=== PATIENT | female | born 1970 | race Caucasian/White ===

== ENCOUNTER → 2017-04-15 | Outpatient (CLI) | payer OTHER | LOC: FIMAGING 12:37 | PROVIDERS: ATTEND Internal Medicine | DX: E04.1 Nontoxic single thyroid nodule (principal) ==

== ENCOUNTER → 2017-06-14 | Outpatient (CLI) | payer OTHER | LOC: FIMAGING 09:15 | PROVIDERS: ATTEND Allergy & Immunology Allergy | DX: J32.9 Chronic sinusitis, unspecified (principal) ==

== ENCOUNTER → 2017-09-09 | Outpatient (CLI) | payer OTHER | LOC: FIMAGING 09:23 | PROVIDERS: ATTEND Internal Medicine | DX: Z12.31 Encounter for screening mammogram for malignant neoplasm of breast (principal) | CPT/HCPCS: G0202 ==

== ENCOUNTER → 2018-04-07 | Outpatient (CLI) | payer OTHER | LOC: FIMAGING 16:55 | PROVIDERS: ATTEND Internal Medicine | DX: Z12.73 Encounter for screening for malignant neoplasm of ovary (principal); D25.1 Intramural leiomyoma of uterus; Z97.5 Presence of (intrauterine) contraceptive device ==

== ENCOUNTER → 2018-10-17 | Outpatient (CLI) | payer OTHER | LOC: FIMAGING 14:41 | PROVIDERS: ATTEND Internal Medicine | DX: Z12.31 Encounter for screening mammogram for malignant neoplasm of breast (principal) ==

== ENCOUNTER 2018-11-08 18:26 | Emergency (ER) | payer OTHER ==
[2018-11-08 19:02] LABS: PLATELET COUNT 290 10^3/uL (150-400)
--- NOTE | 2018-11-08 19:23 | EDPHY ---
H & P Stated Complaint: syncopal Time Seen by Provider: 11/08/18 18:40 HPI/ROS: CHIEF COMPLAINT: Near syncope HISTORY OF PRESENT ILLNESS: 48-year-old female presents with near syncope. At 2:30 p.m. She took an edible CBD preparation for ongoing neck pain. She was sitting on the couch at 6:00 p.m., when she developed an out of body experience and felt that she was disconnected from her body. She then became quite anxious and developed tingling and all of her extremities. She felt like she was going in and out of consciousness. She now is starting to feel somewhat better. She is very concerned that she is having a stroke. She did not faint or fall. No prior similar symptoms. REVIEW OF SYSTEMS: complete 10 point ROS reviewed and is negative except for the noted elements in the HPI - Personal History LMP (Females 10-55): Now Current Tetanus/Diphtheria Vaccine: Unsure - Medical/Surgical History Hx Asthma: No Hx Chronic Respiratory Disease: No Hx Diabetes: No Hx Cardiac Disease: No Hx Renal Disease: No Hx Cirrhosis: No Hx Alcoholism: No Hx HIV/AIDS: No Hx Splenectomy or Spleen Trauma: No Other PMH: PMH- HYPOTHYROID - Social History Smoking Status: Never smoked Alcohol Use: Sober Drug Use: None - Physical Exam Exam: General Appearance: Alert, pleasant Eyes: Pupils equal and round, no conjunctival pallor or injection ENT, Mouth: Mucous membranes moist Neck: Normal inspection Respiratory: Lungs are clear to auscultation Cardiovascular: Regular rate and rhythm Gastrointestinal: Abdomen is soft and nontender Neurological: Alert, oriented x3, cranial nerves II through XII intact, motor 5 /5, sensory intact to light touch, normal gait Skin: Warm and dry Extremities: Nontender, no pedal edema Psychiatric: Anxious Constitutional: Initial Vital Signs Temperature (C) 36.4 C 11/08/18 18:37 Heart Rate 120 H 11/08/18 18:37 Respiratory Rate 22 H 11/08/18 18:37 Blood Pressure 130/87 H 11/08/18 18:37 O2 Sat (%) 97 11/08/18 18:37 O2 Delivery Mode Room Air Allergies/Adverse Reactions: broccoli Allergy (Verified 11/08/18 18:40) cauliflower Allergy (Verified 11/08/18 18:40) Lactobacillus acidophilus [From Rosaura] Allergy (Verified 11/21/15 11:50) pectin [From Rosaura] Allergy (Verified 10/05/15 11:50) Home Medications: Medication Instructions Recorded Acetaminophen with Codeine 1 each PO Q4 PRN #17 tab 10/05/15 [Tylenol #3] T3 10/05/15 Medical Decision Making - Diagnostics EKG Interpretation: EKG interpreted by me reveals sinus tachycardia, rate 107, no ST or T segment changes. Interpretation: Otherwise normal EKG ED Course/Re-evaluation: This pt presents after a near syncopal episode. Most likely related to OTC herbal preparation. VS stable and EKG unremarkable. Labs ordered, will obs. Results d/w pt, labs unremarkable, driller hand: NSR throughout. Feels much better, warning signs discussed. Will avoid CBD gummies. Differential Diagnosis: includes though not limited to dysrhythmia, hypoglycemia, ACS, CVA, dehydration - Data Points Laboratory Results: Laboratory Results 11/08/18 18:53 11/08/18 18:53 Point of Care Test Results: Chemistry 11/08/18 19:00 POC Troponin I 0.00 ng/mL ng/mL (0.00-0.08) Departure - Departure Disposition: Home, Routine, Self-Care Clinical Impression: Near syncope Condition: Good Instructions: Near Syncope (ED) Additional Instructions: Your laboratory tests and EKG are normal today, except for a mildly elevated glucose level. Have your glucose level rechecked when you are feeling well. Return with recurrent symptoms or any concerns. Referrals: Amalia Allen MD [Primary Care Provider] - As per Instructions
[2018-11-08 20:05] VITALS: BP 108/69
--- NOTE | 2018-11-10 11:24 | CPEKG ---
Test Reason : OPEN Blood Pressure : / mmHG Vent. Rate : 107 BPM Atrial Rate : 107 BPM P-R Int : 146 ms QRS Dur : 079 ms QT Int : 334 ms P-R-T Axes : 032 055 032 degrees QTc Int : 446 ms Sinus tachycardia Confirmed by dArienne Reina ([id number]) on 11/10/2018 11:24:02 AM Referred By: Confirmed By:Adrienne Reina
== END 2018-11-08 20:26 | disposition home or self-care (01) ==
DX: R55 Syncope and collapse (principal); F12.90 Cannabis use, unspecified, uncomplicated
CPT/HCPCS: 84484-ER